=== PATIENT | male | born 1940 | race Caucasian/White ===

== ENCOUNTER 2019-08-01 13:21 | Inpatient (IN) | payer OTHER, MEDICARE ==
--- NOTE | 2019-08-01 14:18 | XR ---
EXAMINATION TYPE: XR chest 2V DATE OF EXAM: 08/01/2019 COMPARISON: NONE HISTORY: Chest pain TECHNIQUE: Frontal and lateral views of the chest are obtained. FINDINGS: There is no focal air space opacity, pleural effusion, or pneumothorax seen. The patient is post median sternotomy and the heart is enlarged, there are overlying cardiac leads. Aorta is dens e. Old left clavicular fracture is now healed. There is thoracic spondylosis. The osseous structures are intact. IMPRESSION: Postop changes, cardiomegaly.
[2019-08-01 14:22] LABS: Basophils # (A) 0.1 k/uL (0-0.2); Basophils % (A) 1 %; Eosinophils # (A) 0.1 k/uL (0-0.7); Eosinophils % (A) 1 %; HCT 42.4 % (39.0-53.0); HGB 14.3 gm/dL (13.0-17.5); Lymphocytes % (A) 10 %; MCH 28.4 pg (25.0-35.0); MCHC 33.6 g/dL (31.0-37.0); MCV 84.4 fL (80.0-100.0); Mean Platelet Volume 6.2; Monocytes # (A) 0.3 k/uL (0-1.0); Monocytes % (A) 3 %; Neutrophils # (A) 8.9 k/uL (1.3-7.7); Neutrophils % (A) 85 %; Platelet Count 272 k/uL (150-450); RBC 5.02 m/uL (4.30-5.90); RDW 13.2 % (11.5-15.5); WBC 10.6 k/uL (3.8-10.6)
[2019-08-01] MEDS ORDERED: KETOROLAC 60 MG/2 ML VIAL IVP STA (14:24)
[2019-08-01 14:38] LABS: ALT 25 U/L (21-72); AST 24 U/L (17-59); African American GFR (CKD) >90 (>60 ml/min/1.73 sqM); Albumin 3.5 g/dL (3.5-5.0); Alkaline Phosphatase 135 U/L (38-126); Anion Gap 6 mmol/L; Blood Urea Nitrogen 14 mg/dL (9-20); Calcium 8.5 mg/dL (8.4-10.2); Carbon Dioxide 29 mmol/L (22-30); Chloride 101 mmol/L (98-107); Glucose 127 mg/dL (74-99); Magnesium 1.8 mg/dL (1.6-2.3); Non-African American GFR(CKD) >90 (>60 ml/min/1.73 sqM); Sodium 136 mmol/L (137-145); Total Bilirubin 0.9 mg/dL (0.2-1.3); Total Protein 6.8 g/dL (6.3-8.2)
[2019-08-01 14:46] LABS: INR 2.4 (<1.2); Partial Thromboplastin Time 35.4 sec (22.0-30.0); Prothrombin Time 23.2 sec (9.0-12.0)
--- NOTE | 2019-08-01 14:48 | ED ---
General Adult HPI - General Chief complaint: Chest Pain Stated complaint: Chest Pain Time Seen by Provider: 08/01/19 13:25 Source: patient, RN notes reviewed, old records reviewed Mode of arrival: ambulatory Limitations: no limitations - History of Present Illness Initial comments: This is a 79-year-old male with past medical history significant for bypass and stent placements of his coronary arteries. Patient also has diabetes hypertension high cholesterol. Patient comes in today because he started having chest pain and states that he also short of breath. She states this is typical of his chest pain that he has in the past when he's had heart attacks. Patient denies any fever chills or cough. Patient denies any lightheadedness or dizziness. Patient denies any abdominal pain patient denies nausea vomiting or diarrhea. Patient denies any increase in the swelling is legs he states he has chronic swelling in his legs. Patient denies any smoking history whatsoever. - Related Data Allergies Allergy/AdvReac Type Severity Reaction Status Date / Time [id number]-[id number]-Dvt Reductase Allergy Unknown Verified 08/01/19 13:24 Inhibitor Review of Systems ROS Statement: Those systems with pertinent positive or pertinent negative responses have been documented in the HPI. ROS Other: All systems not noted in ROS Statement are negative. Past Medical History Past Medical History: Hyperlipidemia, Hypertension History of Any Multi-Drug Resistant Organisms: None Reported Past Surgical History: Coronary Bypass/CABG, Heart Catheterization With Stent Past Psychological History: No Psychological Hx Reported Smoking Status: Never smoker Past Alcohol Use History: None Reported Past Drug Use History: None Reported General Exam - General Exam Comments Initial Comments: GENERAL: Patient is well-developed and well-nourished. Patient is nontoxic and well- hydrated and is in mild distress. ENT: Neck is soft and supple. No significant lymphadenopathy is noted. Oropharynx is clear. Moist mucous membranes. Neck has full range of motion without eliciting any pain. EYES: The sclera were anicteric and conjunctiva were pink and moist. Extraocular movements were intact and pupils were equal round and reactive to light. Eyelids were unremarkable. PULMONARY: Unlabored respirations. Good breath sounds bilaterally. No audible rales rhonchi or wheezing was noted. CARDIOVASCULAR: There is a regular rate and rhythm without any murmurs gallops or rubs. ABDOMEN: Soft and nontender with normal bowel sounds. SKIN: Skin is clear with no lesions or rashes and otherwise unremarkable. NEUROLOGIC: Patient is alert and oriented x3. Cranial nerves II through XII are grossly intact. Motor and sensory are also intact. Normal speech, volume and content. Symmetrical smile. MUSCULOSKELETAL: Normal extremities with adequate strength and full range of motion. No lower extremity swelling or edema. No calf tenderness. LYMPHATICS: No significant lymphadenopathy is noted PSYCHIATRIC: Normal psychiatric evaluation. Limitations: no limitations Course Vital Signs 08/01/19 08/01/19 08/01/19 13:25 13:34 13:40 Temperature 97.7 F Pulse Rate 58 L 57 L Respiratory 18 10 L Rate Blood Pressure 203/90 192/92 O2 Sat by Pulse 97 96 98 Oximetry 08/01/19 08/01/19 08/01/19 13:50 14:00 14:10 Temperature Pulse Rate 57 L 55 L Respiratory 11 L 7 L Rate Blood Pressure 192/92 192/92 202/116 O2 Sat by Pulse 99 98 Oximetry 08/01/19 08/01/19 08/01/19 14:20 14:30 14:40 Temperature Pulse Rate 52 L 55 L Respiratory 13 10 L Rate Blood Pressure 202/116 202/116 O2 Sat by Pulse 99 Oximetry 08/01/19 08/01/19 08/01/19 14:50 15:00 15:10 Temperature Pulse Rate 51 L 54 L 56 L Respiratory 12 16 12 Rate Blood Pressure 184/149 O2 Sat by Pulse 96 97 97 Oximetry 08/01/19 08/01/19 08/01/19 15:20 15:30 15:49 Temperature Pulse Rate 64 72 68 Respiratory 9 L 23 20 Rate Blood Pressure 184/149 184/149 203/110 O2 Sat by Pulse 96 100 Oximetry Medical Decision Making - Medical Decision Making EKG shows sinus bradycardia at 55 bpm MA interval 212 QRS 110 QT interval 44 QTC is 36 per patient's EKG shows no ST segment elevation or depression. Chest x-ray shows no acute abnormality Patient had unstable angina but the patient started coincident no heparin was given. I spoke with Dr. Whiteside she agreed to admit the patient admitted the patient I wrote admitting orders I consult cardiology. - Lab Data Result diagrams: 08/01/19 13:47 08/01/19 13:47 Lab Results 08/01/19 08/01/19 08/01/19 Range/Units 13:47 13:47 13:47 WBC 10.6 (3.8-10.6) k/uL RBC 5.02 (4.30-5.90) m/uL Hgb 14.3 (13.0-17.5) gm/dL Hct 42.4 (39.0-53.0) % MCV 84.4 (80.0-100.0) fL MCH 28.4 (25.0-35.0) pg MCHC 33.6 (31.0-37.0) g/dL RDW 13.2 (11.5-15.5) % Plt Count 272 (150-450) k/uL Neutrophils % 85 % Lymphocytes % 10 % Monocytes % 3 % Eosinophils % 1 % Basophils % 1 % Neutrophils # 8.9 H (1.3-7.7) k/uL Lymphocytes # 1.0 (1.0-4.8) k/uL Monocytes # 0.3 (0-1.0) k/uL Eosinophils # 0.1 (0-0.7) k/uL Basophils # 0.1 (0-0.2) k/uL PT 23.2 H (9.0-12.0) sec INR 2.4 H (<1.2) APTT 35.4 H (22.0-30.0) sec Sodium 136 L (137-145) mmol/L Potassium 4.0 (3.5-5.1) mmol/L Chloride 101 (98-107) mmol/L Carbon Dioxide 29 (22-30) mmol/L Anion Gap 6 mmol/L BUN 14 (9-20) mg/dL Creatinine 0.61 L (0.66-1.25) mg/dL Est GFR (CKD-EPI)AfAm >90 (>60 ml/min/1.73 sqM) Est GFR (CKD-EPI)NonAf >90 (>60 ml/min/1.73 sqM) Glucose 127 H (74-99) mg/dL Calcium 8.5 (8.4-10.2) mg/dL Magnesium 1.8 (1.6-2.3) mg/dL Total Bilirubin 0.9 (0.2-1.3) mg/dL AST 24 (17-59) U/L ALT 25 (21-72) U/L Alkaline Phosphatase 135 H (38-126) U/L Troponin I (0.000-0.034) ng/mL Total Protein 6.8 (6.3-8.2) g/dL Albumin 3.5 (3.5-5.0) g/dL 08/01/19 Range/Units 13:47 WBC (3.8-10.6) k/uL RBC (4.30-5.90) m/uL Hgb (13.0-17.5) gm/dL Hct (39.0-53.0) % MCV (80.0-100.0) fL MCH (25.0-35.0) pg MCHC (31.0-37.0) g/dL RDW (11.5-15.5) % Plt Count (150-450) k/uL Neutrophils % % Lymphocytes % % Monocytes % % Eosinophils % % Basophils % % Neutrophils # (1.3-7.7) k/uL Lymphocytes # (1.0-4.8) k/uL Monocytes # (0-1.0) k/uL Eosinophils # (0-0.7) k/uL Basophils # (0-0.2) k/uL PT (9.0-12.0) sec INR (<1.2) APTT (22.0-30.0) sec Sodium (137-145) mmol/L Potassium (3.5-5.1) mmol/L Chloride (98-107) mmol/L Carbon Dioxide (22-30) mmol/L Anion Gap mmol/L BUN (9-20) mg/dL Creatinine (0.66-1.25) mg/dL Est GFR (CKD-EPI)AfAm (>60 ml/min/1.73 sqM) Est GFR (CKD-EPI)NonAf (>60 ml/min/1.73 sqM) Glucose (74-99) mg/dL Calcium (8.4-10.2) mg/dL Magnesium (1.6-2.3) mg/dL Total Bilirubin (0.2-1.3) mg/dL AST (17-59) U/L ALT (21-72) U/L Alkaline Phosphatase (38-126) U/L Troponin I <0.012 (0.000-0.034) ng/mL Total Protein (6.3-8.2) g/dL Albumin (3.5-5.0) g/dL Disposition Clinical Impression: Chest pain Disposition: ADMITTED IP TO THIS HOSP Referrals: Nonstaff,Physician [Primary Care Provider] - 1-2 days Time of Disposition: 15:55
[2019-08-01] MEDS ORDERED: hydrALAZINE HCL 20 MG/ML 1 ML VIAL IVP STA ×2 (15:51→16:24)
[2019-08-01] MEDS ORDERED: NITROGLYCERIN SL TABS 0.4 MG TAB SUBLINGUAL PRN (15:55)
--- NOTE | 2019-08-01 17:47 | P.HPIM ---
History of Present Illness H&P Date: 08/01/19 Chief Complaint: chest pain The patient is a 79-year-old morbidly obese male with a past medical history of obstructive sleep apnea noncompliant with CPAP therapy, atrial fibrillation currently on Coumadin, essential hypertension, hyperlipidemia, coronary artery disease with stenting 6 history of three-vessel CABG and significant valvular heart disease (type and specifics unknown by patient )presented to the ER via private vehicle with chief complaint of chest pain. The patient reports severe infrasternal/midepigastric stabbing chest discomfort without any radiation with associated shortness of breath, diaphoresis and nausea beginning last night and progressing into today. The patient denies any palpitations, denies headache, slurred speech, focal weakness or facial droop. He reports chronic lower extremity swelling. The patient previously noted a productive cough for the last 2 weeks which seems not to be resolving The patient reports that he usually goes to the [place] and states that he was advised to have valvular repair which she has opted to put off until the summer of next year. He is no ability to ambulate with a with a cane and uses electric scooter and wheelchair In the ER patient had a comprehensive workup EKG showed sinus bradycardia with a rate of 55, troponin was negative at less than 0.012, PT/INR was 23.2 and 2.4. Sodium was 136. Chest x-ray did show cardiomegaly. The patient is noted to have elevated blood pressure as high as the 200s systolically, he was given a dose of hydralazine, sublingual nitroglycerin, hydralazine and started on aspirin and recommended for admission Review of Systems pertinent positives per HPI all other review of systems are otherwise negative Past Medical History Past Medical History: Hyperlipidemia, Hypertension History of Any Multi-Drug Resistant Organisms: None Reported Past Surgical History: Coronary Bypass/CABG, Heart Catheterization With Stent Past Psychological History: No Psychological Hx Reported Smoking Status: Never smoker Past Alcohol Use History: None Reported Past Drug Use History: None Reported Medications and Allergies Allergies Allergy/AdvReac Type Severity Reaction Status Date / Time Xmpehie-[id number]-Tmt Reductase Allergy Unknown Verified 08/01/19 13:24 Inhibitor Physical Exam Vitals: Vital Signs Temp Pulse Resp BP Pulse Ox 08/01/19 16:54 78 18 172/79 100 08/01/19 16:13 75 16 182/84 100 08/01/19 16:04 70 20 180/95 100 08/01/19 15:49 68 20 203/110 100 08/01/19 15:30 72 23 184/149 08/01/19 15:20 64 9 L 184/149 96 08/01/19 15:10 56 L 12 184/149 97 08/01/19 15:00 54 L 16 97 08/01/19 14:50 51 L 12 96 08/01/19 14:40 55 L 10 L 99 08/01/19 14:30 52 L 13 202/116 08/01/19 14:20 202/116 08/01/19 14:10 202/116 08/01/19 14:00 55 L 7 L 192/92 98 08/01/19 13:50 57 L 11 L 192/92 99 08/01/19 13:40 57 L 10 L 192/92 98 08/01/19 13:34 96 08/01/19 13:25 97.7 F 58 L 18 203/90 97 Intake and Output 08/01/19 08/01/19 08/01/19 06:59 14:59 22:59 Other: Weight 148.778 kg Constitutional: No acute distress, conversant, pleasant Eyes: Anicteric sclerae, moist conjunctiva, no lid-lag, PERRLA ENMT: NC/AT,Oropharynx clear, no erythema, exudates Neck:Supple, FROM, no masses, or JVD, No carotid bruits; No thyromegaly Lungs: Clear to auscultation, Clear to percussion, Normal respiratory effort, no accessory muscle use Cardiovascular: Heart regular in rate and rhythm, holosystolic murmur, + 2 lower extremity pitting edema bilaterally Abdominal: Soft Nontender, nom distended, no guarding, no rebound or rigidity, Normoactive bowel sounds No hepatomegaly, No splenomegaly, No palpable mass No abdominal wall hernia noted Skin: Normal temperature, tone, texture, turgor, No induration No subcutaneous nodules, No rash, lesions, No ulcers Extremities:No digital cyanosis No clubbing, Pedal pulses intact and symmetrical Radial pulses intact and gait not assessed, no calf tenderness Psychiatric: Alert and oriented to person, place and time, Appropriate affect Intact judgement Neuro: Muscles Strength 5/5 in all 4 extremities, Sensation to light touch grossly present throughout, Cranial nerves II-XII grossly intact. No focal sensory deficits Results CBC & Chem 7: 08/01/19 13:47 08/01/19 13:47 Labs: Abnormal Lab Results - Last 24 Hours (Table) 08/01/19 08/01/19 08/01/19 Range/Units 13:47 13:47 13:47 Neutrophils # 8.9 H (1.3-7.7) k/uL PT 23.2 H (9.0-12.0) sec INR 2.4 H (<1.2) APTT 35.4 H (22.0-30.0) sec Sodium 136 L (137-145) mmol/L Creatinine 0.61 L (0.66-1.25) mg/dL Glucose 127 H (74-99) mg/dL Alkaline Phosphatase 135 H (38-126) U/L Assessment and Plan Assessment: Assessment Chest pain Coronary artery disease with stenting History of three-vessel CABG Hypertensive urgency History of Paroxysmal A. fib on Coumadin therapy Valvular heart disease Hyperlipidemia Plan: The patient is placed in observation anticipated less than 2 midnight stay after presented with chest pain in the patient with a history of known coronary dise ase with stenting and history of three-vessel CABG that presented with hypertensive urgency. The patient is placed on telemetry with routine chest pain orders with sublingual nitroglycerin aspirin ordered, will also give him a dose of morphine. The patient reports previous echocardiogram done within the last 3 months try to obtain [facility], I will check a TSH. Initial workup with troponin has been negative will continue to trend sequentially and consult cardiology for further recommendations. Patient to continue nose home medications after his list is updated in the EMR. We'll continue to monitor his blood pressure closely and continue to monitor his clinical course CODE STATUS: Full code Discussed plan of care with: Patient and significant other Anticipated discharge: 1-[address]: Home Prophylaxis SCDs/warfarin and Protonix
[2019-08-01] MEDS ORDERED: ONDANSETRON 4 MG/2 ML VIAL IVP STA (17:55)
[2019-08-01] MEDS ORDERED: NITROGLYCERIN OINT 1 INCH/GM PACKET TOPICAL SCH (18:00)
[2019-08-01] MEDS ORDERED: ARTIFICIAL TEARS-HYPROMELLOSE DROPS 15 ML BTL BOTH EYES PRN (18:11)
[2019-08-01] MEDS ORDERED: ALBUTEROL NEBULIZED 2.5 MG/3 ML INHALATION PRN (18:11)
[2019-08-01] MEDS ORDERED: WARFARIN 5 MG TAB PO SCH (18:30)
[2019-08-01] MEDS ORDERED: MORPHINE SULFATE 2 MG/ML SYRINGE IVP PRN (18:45)
[2019-08-01] MEDS ORDERED: NITROGLYCERIN-D5W PMX 50 MG in DEXTROSE/WATER 1 250ML.BAG IV SCH ×2 (18:45→19:00)
[2019-08-01] MEDS: HYDROCHLOROTHIAZIDE 25 MG TAB PO SCH (20:04)
[2019-08-01] MEDS: PANTOPRAZOLE 40 MG TABLET PO SCH (20:04)
[2019-08-01] MEDS: TAMSULOSIN 0.4 MG CAP.ER.24H PO SCH (20:04)
[2019-08-01] MEDS: LOSARTAN 25 MG TAB PO SCH (20:04)
[2019-08-01] MEDS: ATORVASTATIN 40 MG TAB PO SCH (20:04)
[2019-08-01] MEDS ORDERED: MAG HYDROX/AL HYDROX/SIMETH 30 ML CUP PO PRN (20:18)
[2019-08-01] MEDS ORDERED: ISOSORBIDE MONONITRATE ER 60 MG TAB.ER.24H PO SCH (21:00)
[2019-08-02] MEDS ORDERED: cloNIDine HCL 0.2 MG TAB PO PRN (03:52)
[2019-08-02 06:40] LABS: Cholesterol 104 mg/dL (<200); HDL Cholesterol 30 mg/dL (40-60); LDL Cholesterol,Calculated 61 mg/dL (0-99); Triglycerides 64 mg/dL (<150)
[2019-08-02 06:42] LABS: INR 2.6 (<1.2); Prothrombin Time 24.9 sec (9.0-12.0)
[2019-08-02] MEDS ORDERED: ASPIRIN 325 MG TAB PO SCH (09:00)
[2019-08-02] MEDS ORDERED: PHYTONADIONE ORAL 5 MG/5 ML ORAL.SYRG PO STA (09:48)
--- NOTE | 2019-08-02 09:55 | P.CRDCN ---
History of Present Illness Consult date: 08/02/19 Requesting physician: Tamera Whiteside Consult reason: non-Q-wave CA Chief complaint: Chest pain History of present illness: This is a 79-year-old gentleman with history of coronary artery disease and prior stent placements, he also underwent coronary artery bypass grafting surgery which she states was performed approximately 5 years ago at the [facility] in [place]. Patient also has history of hypertension, hyperlipidemia, paroxysmal atrial fibrillation. He presented to the hospital on this occasion with symptoms of midsternal chest discomfort which she states felt like gas pain. He almost felt like he had the chills associated with that. After hospital arrival he states he became quite diaphoretic. Chest x-ray on presentation here did not reveal any acute changes. EKG shows sinus bradycardia on admission here. Subsequent EKG shows normal sinus rhythm with nonspecific ST-T wave changes. On arrival the patient's blood pressure was 203/90 with a heart rate in the 50s, 97% on room air. Blood pressure this morning 130/60 with a heart rate in the 70s, 94% on room air. Patient was a low-grade temperature of 99.1. White blood cell count 10.6, hemoglobin 14.3, platelet count 272. INR 2.4 on arrival, 2.6 this morning. Sodium 136, potassium 4.0, BUN 14, creatinine 0.6, magnesium 1.8. Troponins 0.012, 0.017, 092. TSH 2.3. At the time of my examination this morning the patient is currently chest pain-free. Past Medical History Past Medical History: Hyperlipidemia, Hypertension History of Any Multi-Drug Resistant Organisms: None Reported Past Surgical History: Coronary Bypass/CABG, Heart Catheterization With Stent Additional Past Surgical History / Comment(s): CABG (at least 5 years ago) Past Anesthesia/Blood Transfusion Reactions: No Reported Reaction Date of Last Stent Placement:: unk Past Psychological History: No Psychological Hx Reported Smoking Status: Never smoker Past Alcohol Use History: None Reported Past Drug Use History: None Reported Medications and Allergies Home Medications Medication Instructions Recorded Confirmed Type Albuterol Inhaler [Ventolin Hfa 2 puff INHALATION RT-QID PRN 08/01/19 08/01/19 History Inhaler] Atorvastatin [Lipitor] 40 mg PO HS 08/01/19 08/01/19 History Dextran 70/Hypromellose [Genteal 2 drop BOTH EYES QID PRN 08/01/19 08/01/19 History Tears 0.1%-0.3% Drop] Hydrochlorothiazide 25 mg PO HS 08/01/19 08/01/19 History Isosorbide Mononitrate ER [Imdur] 60 mg PO HS 08/01/19 08/01/19 History Losartan Potassium [Cozaar] 25 mg PO HS 08/01/19 08/01/19 History Pantoprazole [Protonix] 40 mg PO HS 08/01/19 08/01/19 History Tamsulosin HCl [Flomax] 0.4 mg PO HS 08/01/19 08/01/19 History Warfarin [Coumadin] 5 mg PO HS 08/01/19 08/01/19 History Allergies Allergy/AdvReac Type Severity Reaction Status Date / Time Fkzcmjz-Lwf-Jnu Reductase Allergy Unknown Verified 08/01/19 17:53 Inhibitor Physical Exam Vitals: Vital Signs Temp Pulse Pulse Resp BP BP Pulse Ox 08/02/19 09:01 98.5 F 71 18 131/59 94 L 08/02/19 04:00 99.1 F 74 18 118/57 92 L 08/02/19 00:00 80 18 121/56 93 L 08/01/19 22:30 99.5 F 90 18 145/65 98 08/01/19 20:00 99.1 F 97 18 184/71 95 08/01/19 18:24 98.1 F 97 20 213/80 96 08/01/19 17:49 98.7 F 78 18 151/57 98 08/01/19 16:54 78 18 172/79 100 08/01/19 16:13 75 16 182/84 100 08/01/19 16:04 70 20 180/95 100 08/01/19 15:49 68 20 203/110 100 08/01/19 15:30 72 23 184/149 08/01/19 15:20 64 9 L 184/149 96 08/01/19 15:10 56 L 12 184/149 97 08/01/19 15:00 54 L 16 97 08/01/19 14:50 51 L 12 96 08/01/19 14:40 55 L 10 L 99 08/01/19 14:30 52 L 13 202/116 08/01/19 14:20 202/116 08/01/19 14:10 202/116 08/01/19 14:00 55 L 7 L 192/92 98 08/01/19 13:50 57 L 11 L 192/92 99 08/01/19 13:40 57 L 10 L 192/92 98 08/01/19 13:34 96 08/01/19 13:25 97.7 F 58 L 18 203/90 97 Intake and Output 08/01/19 08/02/19 08/02/19 22:59 06:59 14:59 Other: Voiding Method Incontinent Incontinent # Voids 1 Weight 145.8 kg PHYSICAL EXAMINATION: GENERAL: 79-year-old gentleman in no acute distress at the time of my examination HEENT: Head is atraumatic, normocephalic. Pupils equal, round. Sclera anicteric. Conjunctiva are clear. Mucous membranes of the mouth are moist. Neck is supple. There is no elevated jugular venous pressure. No carotid bruit is heard. HEART EXAMINATION: Heart S1-S2 a systolic murmur. CHEST EXAMINATION: Lungs are clear to auscultation and precussion. No chest wall tenderness is noted on palpation or with deep breathing. ABDOMEN: Soft, obese, nontender. Bowel sounds are heard. No organomegaly noted. EXTREMITIES: 2+ peripheral pulses with no evidence of peripheral edema and no calf tenderness noted. NEUROLOGIC patient is awake, alert and oriented 3 . . Results 08/01/19 13:47 08/01/19 13:47 Cardiac Enzymes 08/01/19 08/01/19 08/01/19 Range/Units 13:47 13:47 19:04 AST 24 (17-59) U/L Troponin I <0.012 0.017 (0.000-0.034) ng/mL 08/02/19 Range/Units 02:08 AST (17-59) U/L Troponin I 0.092 H* (0.000-0.034) ng/mL Coagulation 08/01/19 08/02/19 Range/Units 13:47 05:50 PT 23.2 H 24.9 H (9.0-12.0) sec APTT 35.4 H (22.0-30.0) sec Lipids 08/02/19 Range/Units 05:50 Triglycerides 64 (<150) mg/dL Cholesterol 104 (<200) mg/dL HDL Cholesterol 30 L (40-60) mg/dL CBC 08/01/19 Range/Units 13:47 WBC 10.6 (3.8-10.6) k/uL RBC 5.02 (4.30-5.90) m/uL Hgb 14.3 (13.0-17.5) gm/dL Hct 42.4 (39.0-53.0) % Plt Count 272 (150-450) k/uL Comprehensive Metabolic Panel 08/01/19 Range/Units 13:47 Sodium 136 L (137-145) mmol/L Potassium 4.0 (3.5-5.1) mmol/L Chloride 101 (98-107) mmol/L Carbon Dioxide 29 (22-30) mmol/L BUN 14 (9-20) mg/dL Creatinine 0.61 L (0.66-1.25) mg/dL Glucose 127 H (74-99) mg/dL Calcium 8.5 (8.4-10.2) mg/dL AST 24 (17-59) U/L ALT 25 (21-72) U/L Alkaline Phosphatase 135 H (38-126) U/L Total Protein 6.8 (6.3-8.2) g/dL Albumin 3.5 (3.5-5.0) g/dL Current Medications Generic Name Dose Route Start Last Admin Trade Name Freq PRN Reason Stop Dose Admin Hydrocodone Bitart/Acetaminophen 1 each 08/01/19 18:43 [place] 5-325 PO Q6HR PRN Moderate Pain Al Hydroxide/Mg Hydroxide 30 ml 08/01/19 20:18 08/01/19 21:03 Maalox PO 30 ml Q4HR PRN Administration GI Upset Albuterol Sulfate 2.5 mg 08/01/19 18:11 Ventolin Nebulized INHALATION RT-QID PRN Shortness Of Breath Artificial Tears 2 drops 08/01/19 18:11 Artificial Tear Drops BOTH EYES QID PRN Dry Eye(s) Aspirin 325 mg 08/02/19 09:00 08/02/19 08:52 Aspirin PO 325 mg DAILY [facility] Administration Atorvastatin Calcium 40 mg 08/01/19 21:00 08/01/19 20:04 Lipitor PO 40 mg HS [facility] Administration Clonidine 0.2 mg 08/02/19 03:52 Catapres PO TID PRN Blood Pressure - High Hydrochlorothiazide 25 mg 08/01/19 21:00 08/01/19 20:04 Hydrodiuril PO 25 mg HS [facility] Administration Nitroglycerin/Dextrose 50 mg/ 250 mls @ 1.5 mls/hr 08/01/19 19:00 IV Solution IV .Q24H [facility] Protocol 5 MCG/MIN Losartan Potassium 25 mg 08/01/19 21:00 08/01/19 20:04 Cozaar PO 25 mg HS [facility] Administration Morphine Sulfate 2 mg 08/01/19 18:45 Morphine Sulfate (Inj) IVP Q4H PRN Severe Pain/Discomfort Nitroglycerin 0.4 mg 08/01/19 15:55 Nitrostat SUBLINGUAL Q5M PRN Chest Pain Pantoprazole Sodium 40 mg 08/01/19 21:00 08/01/19 20:04 Protonix PO 40 mg HS [facility] Administration Tamsulosin HCl 0.4 mg 08/01/19 21:00 08/01/19 20:04 Flomax PO 0.4 mg HS [facility] Administration Warfarin Sodium 5 mg 08/01/19 18:30 08/01/19 18:33 Coumadin PO 5 mg DAILY@1800 [facility] Administration Intake and Output 08/01/19 08/02/19 08/02/19 22:59 06:59 14:59 Other: Voiding Method Incontinent Incontinent # Voids 1 Weight 145.8 kg 08/01/19 13:47 08/01/19 13:47 EKG Interpretations (text) EKG shows a normal sinus rhythm with nonspecific ST-T wave changes Assessment and Plan Plan: Assessment and plan #1 midsternal chest pressure and heaviness with associated diaphoresis, troponins 0.012, 0.017, 0.092. EKG shows normal sinus rhythm with nonspecific ST-T wave changes. Clinical picture suggesting acute coronary syndrome. #2 known history of coronary artery disease with prior stenting and coronary artery bypass grafting surgery #3 hyperlipidemia #4 hypertension, accelerated on admission #5 paroxysmal atrial fibrillation on Coumadin for anticoagulation, INR 2.6 Plan Will obtain an echocardiogram with Doppler study. Decrease aspirin 81 mg daily, give the patient a dose of vitamin K today, continue Lipitor, losartan, his continue the when necessary Catapres and hydralazine and start the patient on a beta rosalind. Hold Coumadin. Patient has been advised to undergo cardiac catheterization, the risks and the benefits were explained to the patient in detail. He wishes to speak with a friend prior to proceeding with a heart catheter. This will tentatively be booked today with Dr. Porter ,further rec ommendations to follow DNP note has been reviewed, I agree with a documented findings and plan of care. Patient was seen and examined.
[2019-08-02] MEDS ORDERED: ALPRAZolam 0.5 MG TAB PO PRN (09:56)
[2019-08-02] MEDS ORDERED: SODIUM CHLORIDE 0.9% 1,000 ML in EMPTY BAG 1 BAG IV ONE (09:56)
[2019-08-02] MEDS ORDERED: ALPRAZolam 0.25 MG TAB PO PRN (09:56)
[2019-08-02] MEDS ORDERED: ASPIRIN 325 MG TAB PO STA (09:56)
[2019-08-02] MEDS ORDERED: NITROGLYCERIN SL TABS 0.4 MG TAB SUBLINGUAL PRN (09:56)
[2019-08-02] MEDS ORDERED: ATORVASTATIN 80 MG TAB PO STA (09:56)
[2019-08-02] MEDS: CARVEDILOL 3.125 MG TAB PO SCH ×2 (11:53→21:40)
--- NOTE | 2019-08-02 12:07 | P.PN ---
Subjective Progress Note Date: 08/02/19 Patient seen and examined at bedside currently denying chest pain , reports that he had a lot of belching and burping last evening and thinks it might have been acid reflux . Patient informed that his cardiac markers as troponins trended up 0.012, 0.017, 0.092. Patient seen by cardiology earlier and planning to take the patient to the cardiac catheterization. Objective - Vital Signs Vital signs: Vital Signs Temp 98.5 F 08/02/19 09:01 Pulse 71 08/02/19 09:01 Resp 18 08/02/19 09:01 BP 131/59 08/02/19 09:01 Pulse Ox 94 L 08/02/19 09:01 Intake & Output 08/01/19 08/02/19 08/02/19 18:59 06:59 18:59 Weight 148.778 kg 145.8 kg Other: Voiding Method Incontinent Incontinent # Voids 1 - Exam Constitutional: No acute distress, conversant, pleasant Eyes: Anicteric sclerae, moist conjunctiva, no lid-lag, PERRLA ENMT: NC/AT,Oropharynx clear, no erythema, exudates Neck:Supple, FROM, no masses, or JVD, No carotid bruits; No thyromegaly Lungs: Clear to auscultation, Clear to percussion, Normal respiratory effort, no accessory muscle use Cardiovascular: Heart regular in rate and rhythm, holosystolic murmur, + 2 lower extremity pitting edema bilaterally Abdominal: Soft Nontender, nom distended, no guarding, no rebound or rigidity, Normoactive bowel sounds No hepatomegaly, No splenomegaly, No palpable mass No abdominal wall hernia noted Skin: Normal temperature, tone, texture, turgor, No induration No subcutaneous nodules, No rash, lesions, No ulcers Extremities:No digital cyanosis No clubbing, Pedal pulses intact and symmetrical Radial pulses intact and gait not assessed, no calf tenderness Psychiatric: Alert and oriented to person, place and time, Appropriate affect Intact judgement Neuro: Muscles Strength 5/5 in all 4 extremities, Sensation to light touch grossly present throughout, Cranial nerves II-XII grossly intact. No focal sensory deficits - Labs CBC & Chem 7: 08/01/19 13:47 08/01/19 13:47 Labs: Abnormal Lab Results - Last 24 Hours (Table) 08/01/19 08/01/19 08/01/19 Range/Units 13:47 13:47 13:47 Neutrophils # 8.9 H (1.3-7.7) k/uL PT 23.2 H (9.0-12.0) sec INR 2.4 H (<1.2) APTT 35.4 H (22.0-30.0) sec Sodium 136 L (137-145) mmol/L Creatinine 0.61 L (0.66-1.25) mg/dL Glucose 127 H (74-99) mg/dL Alkaline Phosphatase 135 H (38-126) U/L Troponin I (0.000-0.034) ng/mL HDL Cholesterol (40-60) mg/dL 08/02/19 08/02/19 08/02/19 Range/Units 02:08 05:50 05:50 Neutrophils # (1.3-7.7) k/uL PT 24.9 H (9.0-12.0) sec INR 2.6 H (<1.2) APTT (22.0-30.0) sec Sodium (137-145) mmol/L Creatinine (0.66-1.25) mg/dL Glucose (74-99) mg/dL Alkaline Phosphatase (38-126) U/L Troponin I 0.092 H* (0.000-0.034) ng/mL HDL Cholesterol 30 L (40-60) mg/dL Assessment and Plan Assessment: Non-STEMI * Troponins 0.012, 0.017, 092 EKG showing sinus mechanism with nonspecific ST-T wave changes * Patient on heparin drip as his Patient INR therapeutic at 2.5 * Etiology planning to take patient to cardiac catheterization, given dose of vitamin K * Continue therapy with aspirin, Lipitor and losartan * Echocardiogram ordered and is pending Hypertensive emergency * Now resolved, patient was not given any doses of his nitroglycerin drip as his blood pressure normalized last evening * Continue current management Coronary artery disease with stenting * Continue regimen as above History of vessel CABG Hyperlipidemia * LDL at goal continue statin regimen Paroxysmal A. fib * INR previously therapeutic now being reversed to proceed with cardiac cath * Continue beta rosalind Valvular heart disease * Echocardiogram pending Disposition * Appreciate cardiology recommendations patient will be taken to phlebotomy lab assistant later today * Continue medical management for now * Awaiting records from the [place]
[2019-08-02 16:32] LABS: Glucose,Whole Blood 107 mg/dL (75-99)
[2019-08-02] MEDS ORDERED: LIDOCAINE 1% INJ 10MG/ML (20 ML MDV) ONE (17:48)
[2019-08-02] MEDS ORDERED: IV FLUID CONTINUATION 1,000 ML IV ONE (18:00)
[2019-08-02] MEDS ORDERED: MIDAZOLAM 2 MG/2 ML VIAL IV ONE ×3 (18:10→18:51)
[2019-08-02] MEDS ORDERED: LIDOCAINE 1% INJ 10MG/ML (20 ML MDV) SQ ONE (18:22)
[2019-08-02] MEDS ORDERED: IOPAMIDOL-370 125ML BTL INJ ONE (18:43)
[2019-08-02] MEDS ORDERED: IOPAMIDOL-370 100ML BTL INJ ONE (18:55)
[2019-08-02] MEDS ORDERED: hydrALAZINE HCL 20 MG/ML 1 ML VIAL ONE (18:58)
[2019-08-02] MEDS ORDERED: hydrALAZINE HCL 20 MG/ML 1 ML VIAL IV ONE (18:59)
[2019-08-02] MEDS ORDERED: RX INFO: IV CONTRAST WAS GIVEN 1 EACH MISC MISCELLANE PRN (19:00)
[2019-08-02] MEDS ORDERED: SODIUM CHLORIDE 0.9% 1,000 ML IV SCH (19:00)
[2019-08-02] MEDS: LOSARTAN 25 MG TAB PO SCH (21:39)
[2019-08-02] MEDS: TAMSULOSIN 0.4 MG CAP.ER.24H PO SCH (21:40)
[2019-08-02] MEDS: ATORVASTATIN 40 MG TAB PO SCH (21:40)
[2019-08-02] MEDS: PANTOPRAZOLE 40 MG TABLET PO SCH (21:40)
[2019-08-02] MEDS: HYDROCHLOROTHIAZIDE 25 MG TAB PO SCH (21:40)
--- NOTE | 2019-08-02 22:15 | CC ---
CARDIAC CATHETERIZATION REPORT DATE OF SERVICE: 08/02/2019 PERFORMING PHYSICIAN: Basilio Acosta MD PROCEDURES PERFORMED: 1. Selective left and right coronary angiogram. 2. Angiogram of left internal mammary artery to left anterior descending coronary artery. 3. Angiogram of saphenous vein graft to left circumflex. INDICATION: This is a 79-year-old gentleman with history of coronary artery disease and prior coronary revascularization bypass and stenting with unknown details. His coronary procedures were performed at [facility]. He presented to the hospital with chest discomfort and ruled in for acute ovo-YN-[id number] myocardial infarction. Because of that, a heart catheterization was advised. APPROACH: Right common femoral artery. COMPLICATIONS: None. LEVEL OF SEDATION: Moderate, with sedation length of 39 minutes. PROCEDURE DESCRIPTION: After obtaining informed consent, the patient was brought to the cardiac wharf laborer. The right common femoral artery was cannulated using micropuncture technique. The micropuncture wire passed easily. Then I placed a 6-[place] sheath. Selective left and right coronary angiogram was performed using JL4 and JR4 catheters. OLIVAREZ to LAD angiogram was performed using the JR4 catheter. The SVG to left circumflex was performed using JR4 catheter as well. The procedure was completed without any complication. SELECTIVE CORONARY ANGIOGRAM: 1. The left main appeared to have mild disease only. It bifurcates into LCX and LAD. 2. The LCX has a tight lesion in the proximal portion. Competitive flow was seen from the graft to OM. 3. The LAD. The ostial LAD had a lesion that appeared to be in the range of 50%. The proximal LAD appeared to have mild disease only. The mid LAD has competitive flow from the OLIVAREZ as well. 4. The RCA has a lesion in the midportion that appeared to be in the range of 70%. ANGIOGRAM OF CORONARY BYPASSES: 1. The OLIVAREZ to LAD is patent. 2. The SVG to OM is patent. CONCLUSION: 1. Severe triple-vessel coronary artery disease. 2. Patent OLIVAREZ to LAD. 3. Patent SVG to LCX. 4. The graft to RCA was not opacified. POST-PROCEDURE MANAGEMENT: Obtain his previous medical records. If the RCA graft is occluded, I would pursue PCI of the RCA. MMODL / IJN: [id number] /
[2019-08-02] MEDS: HYDROcodone/APAP 5-325MG 1 EACH TAB PO PRN (23:04)
[2019-08-03 06:30] LABS: INR 1.5 (<1.2)
[2019-08-03] MEDS: CARVEDILOL 3.125 MG TAB PO SCH ×2 (06:48→17:07)
[2019-08-03] MEDS: ASPIRIN 81 MG PO SCH (09:48)
--- NOTE | 2019-08-03 10:53 | P.PN ---
Subjective Progress Note Date: 08/03/19 Principal diagnosis: None STEMI This is a pleasant 79-year-old gentleman with history of coronary artery disease and prior revascularization as well as aortic stenosis was admitted to the hospital with chest discomfort and ruled in for acute non-ST elevation myocardial infarction. Yesterday he underwent heart catheterization which revealed severe triple-vessel CAD with patent OLIVAREZ to LAD and patent graft to the left circumflex. The RCA has a tight lesion and I could not find the graft to the right. He was seen this morning. He continues to have chest discomfort/pressure. He states mild. We are still waiting for the record to come from the [facility] at [facility]. Meanwhile I am going to continue the current medical regimen. I will obtain an echocardiogram to assess aortic stenosis. Also I am going to add oral nitrates to her current medical regimen. Objective - Vital Signs Vital signs: Vital Signs Temp 99.4 F 08/03/19 08:00 Pulse 91 08/03/19 08:00 Resp 16 08/03/19 08:00 BP 114/55 08/03/19 08:00 Pulse Ox 94 L 08/03/19 08:00 Intake & Output 08/02/19 08/03/19 08/03/19 18:59 06:59 18:59 Intake Total 75 222 Output Total 250 Balance 75 -28 Weight 146.2 kg Intake: IV 75 Oral 222 Output: Urine 250 Other: Voiding Method Incontinent Urinal Urinal # Voids 2 - Constitutional General appearance: Present: no acute distress - Respiratory Respiratory: bilateral: CTA - Cardiovascular Rhythm: regular Heart sounds: normal: S1, S2 Abnormal Heart Sounds: Present: systolic murmur - Labs CBC & Chem 7: 08/01/19 13:47 08/01/19 13:47 Labs: Abnormal Lab Results - Last 24 Hours (Table) 08/02/19 08/03/19 Range/Units 16:31 06:05 PT 15.0 H (9.0-12.0) sec INR 1.5 H (<1.2) POC Glucose (mg/dL) 107 H (75-99) mg/dL Assessment and Plan Assessment: Assessment #1 acute non-ST elevation SD #2 aortic stenosis of unknown severity #3 severe CAD and prior revascularization #4 chest discomfort Plan #1 continue the current medical regimen #2 add oral nitrates to the current medical regimen #3 obtain an echocardiogram was Doppler #4 follow-up with the patient
--- NOTE | 2019-08-03 11:14 | XR ---
EXAMINATION TYPE: XR chest 1V portable DATE OF EXAM: 08/03/2019 COMPARISON: 08/01/2019 HISTORY: Cough and shortness of breath TECHNIQUE: Single frontal view of the chest is obtained. FINDINGS: Cardiomediastinal silhouette is enlarged. Post-CABG changes are seen in the chest. Promine nce of the ascending thoracic aorta is noted. Mild pulmonary vascular congestion centrally. No new fo antoinette consolidation or pleural effusion. Degenerative changes of the right shoulder and thoracic spine. IMPRESSION: 1. Prominence of the ascending thoracic aorta. Aneurysm is possible. 2. Minimal central pulmonary vascular congestion and cardiomegaly. Consider early decompensated conge stive heart failure. No sizable pleural effusion at this time on x-ray.
[2019-08-03] MEDS: BENZONATATE 100 MG CAP PO PRN ×2 (11:45→21:35)
[2019-08-03] MEDS ORDERED: SODIUM CHLORIDE 0.9% 1,000 ML in EMPTY BAG 1 BAG IV ONE (11:45)
[2019-08-03] MEDS ORDERED: ALPRAZolam 0.5 MG TAB PO PRN (11:45)
[2019-08-03] MEDS ORDERED: ALPRAZolam 0.25 MG TAB PO PRN (11:45)
[2019-08-03] MEDS ORDERED: NITROGLYCERIN SL TABS 0.4 MG TAB SUBLINGUAL PRN (11:45)
[2019-08-03] MEDS ORDERED: ATORVASTATIN 40 MG TAB PO STA (11:45)
[2019-08-03] MEDS ORDERED: ASPIRIN 325 MG TAB PO STA (11:45)
--- NOTE | 2019-08-03 12:13 | P.PN ---
Subjective Progress Note Date: 08/03/19 Principal diagnosis: Chest pain, possible CHF exacerbation Patient was seen and examined. No acute events overnight. Patient reports complete resolution of his chest pain since admission. He complains of worsening shortness of breath this morning and cough productive of frothy sputum. He denies any nausea or vomiting, fever or chills. Patient reports that things are good at home even though he lives by himself. He is able to take care of his ADLs, IADLs. Has Meals on Wheels. Objective - Vital Signs Vital signs: Vital Signs Temp 98.6 F 08/03/19 11:34 Pulse 78 08/03/19 11:34 Resp 20 08/03/19 11:34 BP 144/67 08/03/19 11:34 Pulse Ox 93 L 08/03/19 11:34 Intake & Output 08/02/19 08/03/19 08/03/19 18:59 06:59 18:59 Intake Total 75 222 Output Total 250 Balance 75 -28 Weight 146.2 kg Intake: IV 75 Oral 222 Output: Urine 250 Other: Voiding Method Incontinent Urinal Urinal # Voids 2 - Exam General: [non toxic], [no distress], [appears at stated age] Derm: [warm], [dry] Head: [atraumatic], [normocephalic], [symmetric] Eyes: [EOMI], [no lid lag], [anicteric sclera] Mouth: [no lip lesion], [mucus membranes moist] Cardiovascular: [S1S2 reg], [systolic murmur], [positive DP pulse bilateral], Lungs: [Faint crackles bilaterally], [no rhonchi, no rales] , [no accessory muscle use] Abdominal: [soft], [ nontender to palpation], [no guarding], [no appreciable or ganomegaly] Ext: [no gross muscle atrophy], [1+ lower extremity pitting edema], [no contractures] Neuro: [no focal neuro deficits] Psych: [Alert], [oriented], [appropriate affect] - Labs CBC & Chem 7: 08/01/19 13:47 08/01/19 13:47 Labs: Abnormal Lab Results - Last 24 Hours (Table) 08/02/19 08/03/19 Range/Units 16:31 06:05 PT 15.0 H (9.0-12.0) sec INR 1.5 H (<1.2) POC Glucose (mg/dL) 107 H (75-99) mg/dL Assessment and Plan Assessment: Assessment and plan Shortness of breath possible exacerbation of heart failure versus valvular disease Non-ST elevation GA with history of CAD post CABG and stenting Hypertension Dyslipidemia Paroxysmal atrial fibrillation Chest x-ray this morning showing minimal pulmonary vascular congestion and cardiomegaly. Systolic murmur heard on physical exam, likely aortic stenosis. Plans: Start Lasix 40 mg IV twice a day. Follow-up echocardiogram. Strict intake and outtake. Daily weights. Follow Cardiology consultation. Troponin less than 0.012, 0.017, 0.092, EKG showing sinus bradycardia and first-degree AV block. Cardiac cath performed yesterday, shows severe triple- vessel CAD, 70% occlusion of the RCA, patent OLIVAREZ to LAD, patent SVG to LCx. Plans: Continue aspirin and Lipitor. Continue beta rosalind. Telemetry monitoring. [facility] records obtained, discussed with cardiology GAS ANALYST Mess, patient will require PCI and possible stent planned for tomorrow. BP 144/67. Plans: Continue Coreg. Continue hydrochlorothiazide. Continue losartan and Imdur. Monitor vitals, adjust medications as necessary. Plans: Resume statin. Paroxysmal. Not seen on EKG. Plans: Continue beta rosalind. Resume Coumadin after PCI. [Patient admitted for chest pain, found to have elevated troponins, plans for PCI and possible stent placement tomorrow. Echocardiogram pending. Started on Lasix for venous congestion.]
[2019-08-03 12:25] LABS: African American GFR (CKD) >90 (>60 ml/min/1.73 sqM); Anion Gap 4 mmol/L; Blood Urea Nitrogen 27 mg/dL (9-20); Calcium 7.8 mg/dL (8.4-10.2); Carbon Dioxide 28 mmol/L (22-30); Chloride 102 mmol/L (98-107); Glucose 115 mg/dL (74-99); Non-African American GFR(CKD) 85 (>60 ml/min/1.73 sqM); Potassium 3.7 mmol/L (3.5-5.1); Sodium 134 mmol/L (137-145)
[2019-08-03] MEDS: FUROSEMIDE 10 MG/ML 4 ML VIAL IV SCH ×2 (12:50→21:35)
[2019-08-03] MEDS: LOSARTAN 25 MG TAB PO SCH (21:35)
[2019-08-03] MEDS: PANTOPRAZOLE 40 MG TABLET PO SCH (21:35)
[2019-08-03] MEDS: HYDROCHLOROTHIAZIDE 25 MG TAB PO SCH (21:36)
[2019-08-03] MEDS: ATORVASTATIN 40 MG TAB PO SCH (21:36)
[2019-08-03] MEDS: TAMSULOSIN 0.4 MG CAP.ER.24H PO SCH (21:36)
[2019-08-04] MEDS ORDERED: SODIUM CHLORIDE 0.9% 1,000 ML in EMPTY BAG 1 BAG IV ONE (06:00)
[2019-08-04 06:44] LABS: Prothrombin Time 11.1 sec (9.0-12.0)
[2019-08-04] MEDS: CARVEDILOL 3.125 MG TAB PO SCH ×2 (06:46→17:50)
[2019-08-04] MEDS: BENZONATATE 100 MG CAP PO PRN (06:47)
--- NOTE | 2019-08-04 07:32 | ECHOF ---
Referral Reason:NSTEMI MEASUREMENTS -------- HEIGHT: 180.3 cm WEIGHT: 146.1 kg BP: IVSd: 1.4 cm (0.6 - 1.1) LVIDd: 4.7 cm (3.9 - 5.3) LVPWd: 1.6 cm (0.6 - 1.1) IVSs: 2.2 cm LVIDs: 2.0 cm LVPWs: 2.3 cm LAESV Index (A-L): 20.75 ml/m Ao Diam: 3.4 cm (2.0 - 3.7) AV Cusp: 1.7 cm (1.5 - 2.6) LA Diam: 3.4 cm (2.7 - 3.8) MV EXCURSION: 24.989 mm (> 18.000) MV EF SLOPE: 106 mm/s (70 - 150) EPSS: 0.4 cm MV E Go: 0.97 m/s MV DecT: 345 ms MV A Go: 1.01 m/s MV E/A Ratio: 0.96 AV maxP.82 mmHg AV meanP.11 mmHg RAP: 5.00 mmHg RVSP: 23.84 mmHg FINDINGS -------- Sinus rhythm. This was a technically difficult study with suboptimal views. Previous CABG The left ventricular size is normal. There is moderate concentric left ventricular hypertrophy. O verall left ventricular systolic function is normal with, an EF between 55 - 60 %. There is paradox ical/dysynergic septal motion consistent with post-operative status. The right ventricle is normal in size. The left atrial size is normal. Normal LA size by volume 22+/-6 ml/m2. The right atrial size is normal. Lumason used Aortic valve is trileaflet and is mildly thickened. There is moderate aortic stenosis present. Pe ak/mean gradient across the Aortic Valve is 45.82mmHg / 27.11mmHg. The mitral valve is normal. Mild mitral regurgitation is present. The tricuspid valve appears structurally normal. Mild tricuspid regurgitation present. Right vent ricular systolic pressure is normal at < 35 mmHg. There is no pulmonic regurgitation present. The aortic root size is normal. There is no pericardial effusion. CONCLUSIONS -------- 1. Sinus rhythm. 2. This was a technically difficult study with suboptimal views. 3. Previous CABG 4. The left ventricular size is normal. 5. There is moderate concentric left ventricular hypertrophy. 6. Overall left ventricular systolic function is normal with, an EF between 55 - 60 %. 7. There is paradoxical/dysynergic septal motion consistent with post-operative status. 8. The right ventricle is normal in size. 9. The left atrial size is normal. 10. Normal LA size by volume 22+/-6 ml/m2. 11. The right atrial size is normal. 12. Lumason used 13. Aortic valve is trileaflet and is mildly thickened. 14. There is moderate aortic stenosis present. 15. Peak/mean gradient across the Aortic Valve is 45.82mmHg / 27.11mmHg. 16. The mitral valve is normal. 17. Mild mitral regurgitation is present. 18. The tricuspid valve appears structurally normal. 19. Mild tricuspid regurgitation present. 20. Right ventricular systolic pressure is normal at < 35 mmHg. 21. There is no pulmonic regurgitation present. 22. The aortic root size is normal. 23. There is no pericardial effusion. PRINTING GRAY CLOTH TENDER: Jennie Ramos RDCS
[2019-08-04] MEDS ORDERED: ASPIRIN 325 MG TAB PO STA (09:17)
[2019-08-04] MEDS: ASPIRIN 81 MG PO SCH (09:19)
[2019-08-04] MEDS: ISOSORBIDE MONONITRATE ER 30 MG TAB.ER.24H PO SCH (09:22)
[2019-08-04] MEDS: FUROSEMIDE 10 MG/ML 4 ML VIAL IV SCH (09:23)
[2019-08-04] MEDS ORDERED: ACETAMINOPHEN TAB 325 MG TAB PO PRN (09:46)
--- NOTE | 2019-08-04 09:53 | P.PN ---
Subjective Progress Note Date: 08/04/19 Principal diagnosis: Chest pain, cough and fatigue Patient was seen and examined. No acute events overnight. Patient reports cough productive of sputum that he is unable to describe has been ongoing over the past couple months. Also states that he feels fatigued today. He denies any chest pain or epigastric pain. No nausea or vomiting. Had a low-grade fever this morning. Denies any myalgias. Objective - Vital Signs Vital signs: Vital Signs Temp 98.6 F 08/04/19 03:45 Pulse 97 08/04/19 03:45 Resp 20 08/04/19 03:45 BP 124/74 08/04/19 03:45 Pulse Ox 99 08/04/19 03:45 Intake & Output 08/03/19 08/04/19 08/04/19 18:59 06:59 18:59 Intake Total 430 0 Output Total 2024 1899 Balance -1595 -1900 0 Weight 149 kg Intake: Oral 430 0 Output: Urine 2024 1899 Other: Voiding Method Urinal Urinal # Voids 4 - Exam General: [non toxic], [no distress], [appears at stated age] Derm: [warm], [dry] Head: [atraumatic], [normocephalic], [symmetric] Eyes: [EOMI], [no lid lag], [anicteric sclera] Mouth: [no lip lesion], [mucus membranes moist] Cardiovascular: [S1S2 reg], [systolic murmur], [positive DP pulse bilateral], Lungs: [Decreased breath sounds bilaterally], [no rhonchi, no rales] , [no accessory muscle use] Abdominal: [soft], [ nontender to palpation], [no guarding], [no appreciable organomegaly] Ext: [no gross muscle atrophy], [no edema], [no contractures] Neuro: [no focal neuro deficits] Psych: [Alert], [oriented], [appropriate affect] - Labs CBC & Chem 7: 08/01/19 13:47 08/03/19 06:05 Labs: Abnormal Lab Results - Last 24 Hours (Table) 08/03/19 Range/Units 06:05 Sodium 134 L (137-145) mmol/L BUN 27 H (9-20) mg/dL Glucose 115 H (74-99) mg/dL Calcium 7.8 L (8.4-10.2) mg/dL Assessment and Plan Assessment: Assessment and plan Low-grade fever with cough and shortness of breath, likely viral bronchitis Non-ST elevation [place] with history of CAD post CABG and stenting Elevated BUN Hypertension Dyslipidemia Paroxysmal atrial fibrillation Patient with low-grade fever this morning along with cough productive of undefined sputum, though ongoing for months. Also has fatigue. Echocardiogram shows EF 55-60% with moderate aortic stenosis. Plans: Transition Lasix to oral as echocardiogram looks okay. Repeat chest x-ray. Follow flu swab. Tylenol for fever. Start Mucinex. Troponin less than 0.012, 0.017, 0.092, EKG showing sinus bradycardia and first- degree AV block. Cardiac cath performed yesterday, shows severe triple-vessel CAD, 70% occlusion of the RCA, patent OLIVAREZ to LAD, patent SVG to LCx. Plans: Continue aspirin and Lipitor. Continue beta rosalind. Telemetry monitoring. [facility] records obtained, discussed with cardiology INTERACTIVE PRODUCER Mess, patient will require PCI and possible stent planned for today. BUN 27. Likely prerenal due to Lasix use. Plans: Avoid nephrotoxins. Encourage hydration by mouth. Repeat BMP tomorrow morning. BP 124/74. Plans: Continue Coreg. Continue hydrochlorothiazide. Continue losartan and Imdur. Monitor vitals, adjust medications as necessary. Plans: Resume statin. Paroxysmal. Not seen on EKG. Plans: Continue beta rosalind. Resume Coumadin after PCI. [Patient admitted for chest pain, found to have elevated troponins, plans for PCI and possible stent placement today. Low-grade fever this morning, flu swab ordered along with repeat chest x-ray. Patient is pending clinical improvement. Likely DC in 1-2 days.]
--- NOTE | 2019-08-04 09:59 | XR ---
EXAMINATION TYPE: XR chest 2V DATE OF EXAM: 08/04/2019 COMPARISON: 08/03/2019 HISTORY: Shortness of breath TECHNIQUE: Frontal and lateral views of the chest are obtained. FINDINGS: Scattered senescent parenchymal changes noted. Hyperinflation compatible with COPD. No evidence for infiltrate. No evidence for atelectasis. Heart size is stable. Mediastinal structures are stable and grossly unremarkable. No evidence for hilar prominence. Degenerative changes dorsal spine. IMPRESSION: 1. No evidence for acute pulmonary disease.
[2019-08-04] MEDS ORDERED: IV FLUID CONTINUATION 950 ML IV ONE (12:25)
[2019-08-04] MEDS ORDERED: MIDAZOLAM 2 MG/2 ML VIAL IV ONE (12:48)
[2019-08-04] MEDS ORDERED: LIDOCAINE 1% INJ 10MG/ML (20 ML MDV) SQ ONE (12:49)
[2019-08-04] MEDS: VERAPAMIL SYRINGE (5 MG/10 ML) INTRAARTER ONE ×2 (12:50→13:24)
[2019-08-04] MEDS ORDERED: IOPAMIDOL-370 50ML BTL INJ ONE (12:57)
[2019-08-04] MEDS ORDERED: IOPAMIDOL-370 100ML BTL INJ ONE (12:57)
[2019-08-04] MEDS ORDERED: HEPARIN SODIUM 1,000 UN/ML (10ML VL) IV ONE ×2 (12:59→13:16)
[2019-08-04] MEDS ORDERED: NITROGLYCERIN 1000MCG/10ML SYRINGE INTRACORON ONE (13:23)
[2019-08-04] MEDS ORDERED: niCARdipine Syringe (1,000 mcg/10 mL) INTRACORON ONE (13:23)
[2019-08-04] MEDS ORDERED: CLOPIDOGREL 75 MG TAB PO ONE (13:27)
[2019-08-04] MEDS ORDERED: ATROPINE SULFATE 0.1 MG/ML 10ML SYRINGE IV PRN (13:28)
[2019-08-04] MEDS ORDERED: IOPAMIDOL-370 125ML BTL INJ ONE (13:28)
--- NOTE | 2019-08-04 13:57 | PTCA ---
PERCUTANEOUSTRANS CORORONARY ANGIOGRAPHY DATE OF SERVICE: 08/01/2019 PERFORMING PHYSICIAN: Basilio Acosta MD Successful stenting of the SVG to RCA using 2.5 x 18 mm Xience RAFY with an excellent angiographic result and reduction of stenosis from 80% to 0%. INDICATION: This is a 79-year-old gentleman with history of coronary artery disease and prior revascularization, who presented to the hospital with chest discomfort and ruled in for acute non STEMI. He underwent heart catheterization 2 days ago and was found to have severe triple-vessel CAD with patent OLIVAREZ to LAD, patent SVG to the circumflex, and severe disease involving the graft to RCA. APPROACH: Right radial artery. COMPLICATION: None. LEVEL OF SEDATION: Moderate with sedation length of 40 minutes. PROCEDURE DESCRIPTION: After obtaining an informed consent, the patient was brought to the cardiac laboratory animal care veterinarian. The right radial artery was cannulated using micropuncture technique and a micropuncture wire passed easily, then I placed a 6-[place] sheath in the right radial artery. Anticoagulation was initiated using heparin, where the patient was given 10,000 units of heparin IV with continuous ECT monitoring throughout the procedure. I did initially aortic root angiogram which revealed the takeoff of the graft to the right coronary artery. After that, I did engage the graft using JR4 guide with side hole. I did wire it using a whisper wire. I did balloon angioplasty using 2.0 x 12 mm balloon before I deployed 2.5 x 18 mm Xience RAFY where the stent was positioned under fluoroscopy guidance and deployed under 14 atmospheres for 20 seconds with the following angiogram showing excellent angiographic results. The procedure was completed without any complication. POSTPROCEDURE MANAGEMENT: 1. Dual anti-platelet therapy. 2. Risk factors modifications. 3. Follow up with the patient. MMODL / IJN: [id number] /
[2019-08-04 14:04] VITALS: BMI 44.5
[2019-08-04] MEDS ORDERED: DILTIAZEM DRIP BOLUS FROM BAG 1 MG SOLN IV ONE (14:39)
[2019-08-04] MEDS ORDERED: HEPARIN SODIUM,PORCINE 5,000 UNIT/ML 1 ML VIAL IV PRN (14:39)
[2019-08-04] MEDS ORDERED: HEPARIN SODIUM,PORCINE 5,000 UNIT/ML 1 ML VIAL IV ONE (14:39)
[2019-08-04] MEDS ORDERED: HEPARIN SOD,PORK IN 0.45% NACL 25,000 UNIT in 0.45% NACL 1 250ML.BAG IV SCH (14:45)
[2019-08-04] MEDS ORDERED: DILTIAZEM 125 MG in SODIUM CHLORIDE 0.9% 100 ML IV SCH (15:00)
[2019-08-04] MEDS: SODIUM CHLORIDE 0.9% 1,000 ML IV SCH (15:06)
[2019-08-04 15:27] LABS: Basophils # (A) 0.1 k/uL (0-0.2); Basophils % (A) 1 %; Eosinophils # (A) 0.2 k/uL (0-0.7); Eosinophils % (A) 2 %; HCT 37.6 % (39.0-53.0); HGB 12.4 gm/dL (13.0-17.5); Lymphocytes # (A) 1.7 k/uL (1.0-4.8); Lymphocytes % (A) 17 %; MCH 28.7 pg (25.0-35.0); MCHC 32.9 g/dL (31.0-37.0); MCV 87.3 fL (80.0-100.0); Mean Platelet Volume 5.9; Monocytes # (A) 0.6 k/uL (0-1.0); Monocytes % (A) 6 %; Neutrophils % (A) 72 %; Platelet Count 216 k/uL (150-450); RBC 4.31 m/uL (4.30-5.90); RDW 13.4 % (11.5-15.5); WBC 9.8 k/uL (3.8-10.6)
[2019-08-04 15:50] LABS: INR 1.1 (<1.2); Prothrombin Time 11.9 sec (9.0-12.0)
[2019-08-04 16:06] LABS: Partial Thromboplastin Time >200.0 sec (22.0-30.0)
[2019-08-04] MEDS: PANTOPRAZOLE 40 MG TABLET PO SCH (22:03)
[2019-08-04] MEDS: HYDROCHLOROTHIAZIDE 25 MG TAB PO SCH (22:03)
[2019-08-04] MEDS: guaiFENesin 600 MG TABLET.ER PO SCH (22:03)
[2019-08-04] MEDS: LOSARTAN 25 MG TAB PO SCH (22:03)
[2019-08-04] MEDS: ATORVASTATIN 40 MG TAB PO SCH (22:03)
[2019-08-04] MEDS: TAMSULOSIN 0.4 MG CAP.ER.24H PO SCH (22:04)
[2019-08-05] MEDS: BENZONATATE 100 MG CAP PO PRN (04:09)
[2019-08-05] MEDS: SODIUM CHLORIDE 0.9% 1,000 ML IV SCH (06:28)
[2019-08-05] MEDS: CARVEDILOL 3.125 MG TAB PO SCH (06:28)
[2019-08-05 06:32] LABS: Basophils % (A) 0 %; Eosinophils # (A) 0.2 k/uL (0-0.7); Eosinophils % (A) 2 %; HCT 36.9 % (39.0-53.0); HGB 12.1 gm/dL (13.0-17.5); Lymphocytes # (A) 1.4 k/uL (1.0-4.8); Lymphocytes % (A) 14 %; MCH 28.7 pg (25.0-35.0); MCHC 32.8 g/dL (31.0-37.0); MCV 87.4 fL (80.0-100.0); Mean Platelet Volume 5.8; Monocytes # (A) 0.7 k/uL (0-1.0); Monocytes % (A) 7 %; Neutrophils # (A) 7.2 k/uL (1.3-7.7); Neutrophils % (A) 74 %; Platelet Count 239 k/uL (150-450); RBC 4.22 m/uL (4.30-5.90); RDW 13.1 % (11.5-15.5); WBC 9.7 k/uL (3.8-10.6)
[2019-08-05 06:39] LABS: African American GFR (CKD) >90 (>60 ml/min/1.73 sqM); Anion Gap 6 mmol/L; Blood Urea Nitrogen 22 mg/dL (9-20); Carbon Dioxide 32 mmol/L (22-30); Chloride 97 mmol/L (98-107); Glucose 118 mg/dL (74-99); Non-African American GFR(CKD) >90 (>60 ml/min/1.73 sqM); Potassium 3.5 mmol/L (3.5-5.1); Sodium 135 mmol/L (137-145)
[2019-08-05 08:05] LABS: Basophils # (A) 0.3 k/uL (0-0.2); Basophils % (A) 3 %; Eosinophils # (A) 0.3 k/uL (0-0.7); Eosinophils % (A) 3 %; HGB 12.6 gm/dL (13.0-17.5); Lymphocytes # (A) 1.2 k/uL (1.0-4.8); Lymphocytes % (A) 12 %; MCH 28.1 pg (25.0-35.0); MCHC 32.4 g/dL (31.0-37.0); MCV 86.6 fL (80.0-100.0); Mean Platelet Volume 6.3; Monocytes # (A) 0.6 k/uL (0-1.0); Monocytes % (A) 6 %; Neutrophils # (A) 7.4 k/uL (1.3-7.7); Neutrophils % (A) 74 %; Platelet Count 247 k/uL (150-450); RDW 13.3 % (11.5-15.5); WBC 10.1 k/uL (3.8-10.6)
[2019-08-05 08:11] VITALS: TEMP 97.7
[2019-08-05] MEDS: ASPIRIN 81 MG PO SCH (08:12)
[2019-08-05] MEDS: ISOSORBIDE MONONITRATE ER 30 MG TAB.ER.24H PO SCH (08:12)
[2019-08-05] MEDS: guaiFENesin 600 MG TABLET.ER PO SCH (08:13)
[2019-08-05 08:16] LABS: African American GFR (CKD) >90 (>60 ml/min/1.73 sqM); Anion Gap 6 mmol/L; Blood Urea Nitrogen 21 mg/dL (9-20); Calcium 8.2 mg/dL (8.4-10.2); Carbon Dioxide 31 mmol/L (22-30); Chloride 98 mmol/L (98-107); Glucose 147 mg/dL (74-99); Magnesium 1.8 mg/dL (1.6-2.3); Non-African American GFR(CKD) 89 (>60 ml/min/1.73 sqM); Potassium 3.7 mmol/L (3.5-5.1); Sodium 135 mmol/L (137-145)
[2019-08-05] MEDS ORDERED: FUROSEMIDE 40 MG TAB PO SCH (09:00)
[2019-08-05] MEDS ORDERED: METOPROLOL TARTRATE 50 MG TAB PO SCH (10:00)
[2019-08-05 10:31] LABS: Prothrombin Time 10.9 sec (9.0-12.0)
--- NOTE | 2019-08-05 10:53 | P.PN ---
Subjective Progress Note Date: 08/05/19 Principal diagnosis: None STEMI This is a pleasant 79-year-old gentleman with history of coronary artery disease and prior revascularization as well as aortic stenosis was admitted to the hospital with chest discomfort and ruled in for acute non-ST elevation myocardial infarction. Yesterday he underwent heart catheterization which revealed severe triple-vessel CAD with patent OLIVAREZ to LAD and patent graft to the left circumflex. Yesterday he underwent an aortic root angiogram which revealed the takeoff of the graft to the right coronary artery. I was able to engage the graft and the angiogram revealed tight lesion in the proximal portion. He underwent successful stenting of the SVG to the right with a good angiographic results. He was seen this morning. He is asymptomatic from the cardiovascular standpoint overview. he is in atrial fibrillation with a relatively controlled heart rate. He is on small dose of Cardizem IV. At this point I'm going to decrease the dose of Cardizem IV, DC Coreg and start the patient on metoprolol, and also DC the heparin and start him on oral anticoagulation with Coumadin which she was receiving as an outpatient. Beside that he is on dual antiplatelet therapy. Objective - Vital Signs Vital signs: Vital Signs Temp 97.7 F 08/05/19 08:00 Pulse 80 08/05/19 08:00 Resp 14 08/05/19 08:00 BP 115/59 08/05/19 08:00 Pulse Ox 94 L 08/05/19 08:00 Intake & Output 08/04/19 08/05/19 08/05/19 18:59 06:59 18:59 Intake Total 641.835 514.833 360 Output Total 600 325 Balance 41.835 189.833 360 Weight 149 kg 150 kg Intake: IV 150 Intake, IV Titration 70.833 Amount Heparin Sod,Pork in 0.45% 70.833 NaCl 25,000 unit In 0.45 % NaCl 1 250ml.bag @ 6. 712 UNITS/KG/HR 10.001 mls/hr IV .Q24H [facility] Rx#: [id number] Oral 480 444 360 Output: Urine 600 325 Other: Voiding Method Urinal # Voids 2 1 # Bowel Movements 1 - Constitutional General appearance: Present: no acute distress - Respiratory Respiratory: bilateral: diminished - Cardiovascular Rhythm: irregularly irregular Heart sounds: normal: S1, S2 - Labs CBC & Chem 7: 08/05/19 07:53 08/05/19 07:53 Labs: Abnormal Lab Results - Last 24 Hours (Table) 08/04/19 08/04/19 08/04/19 Range/Units 14:59 14:59 20:40 RBC (4.30-5.90) m/uL Hgb 12.4 L (13.0-17.5) gm/dL Hct 37.6 L (39.0-53.0) % Basophils # (0-0.2) k/uL APTT >200.0 H* 34.0 H (22.0-30.0) sec Sodium (137-145) mmol/L Chloride (98-107) mmol/L Carbon Dioxide (22-30) mmol/L BUN (9-20) mg/dL Glucose (74-99) mg/dL Calcium (8.4-10.2) mg/dL 08/05/19 08/05/19 08/05/19 Range/Units 06:11 06:11 06:11 RBC 4.22 L (4.30-5.90) m/uL Hgb 12.1 L (13.0-17.5) gm/dL Hct 36.9 L (39.0-53.0) % Basophils # (0-0.2) k/uL APTT 31.3 H (22.0-30.0) sec Sodium 135 L (137-145) mmol/L Chloride 97 L (98-107) mmol/L Carbon Dioxide 32 H (22-30) mmol/L BUN 22 H (9-20) mg/dL Glucose 118 H (74-99) mg/dL Calcium 8.0 L (8.4-10.2) mg/dL 08/05/19 08/05/19 Range/Units 07:53 07:53 RBC (4.30-5.90) m/uL Hgb 12.6 L (13.0-17.5) gm/dL Hct (39.0-53.0) % Basophils # 0.3 H (0-0.2) k/uL APTT (22.0-30.0) sec Sodium 135 L (137-145) mmol/L Chloride (98-107) mmol/L Carbon Dioxide 31 H (22-30) mmol/L BUN 21 H (9-20) mg/dL Glucose 147 H (74-99) mg/dL Calcium 8.2 L (8.4-10.2) mg/dL Assessment and Plan Assessment: Assessment #1 acute non-ST elevation [place] #2 status post a stenting of the SVG to RCA #3 moderate aortic stenosis #4 long-standing persistent atrial fibrillation Plan #1 wean the patient from Cardizem IV #2 DC Coreg and start him on metoprolol #3 DC heparin and start him back on Coumadin #4 possible discharge in the next 24 hours
[2019-08-05 11:13] VITALS: BP 145/63; PULSE 68; RESP 16
--- NOTE | 2019-08-05 11:40 | P.PN ---
Subjective Progress Note Date: 08/05/19 Principal diagnosis: Chest pain, cough and fatigue Patient was seen and examined. No acute events overnight. Patient reports slight improvement in his cough since yesterday. He denies any chest pain or shortness of breath. He denies any nausea or vomiting. No fever or chills. Evaluated by PT, recommends rehab the patient was like to go home. He states that he has a lady friend that he would like to live with and she will take great care of him. Objective - Vital Signs Vital signs: Vital Signs Temp 97.7 F 08/05/19 11:11 Pulse 68 08/05/19 11:11 Resp 16 08/05/19 11:11 BP 145/63 08/05/19 11:11 Pulse Ox 95 08/05/19 11:11 Intake & Output 08/04/19 08/05/19 08/05/19 18:59 06:59 18:59 Intake Total 641.835 514.833 360 Output Total 600 325 Balance 41.835 189.833 360 Weight 149 kg 150 kg Intake: IV 150 Intake, IV Titration . 70.833 Amount Heparin Sod,Pork in 0.45% 70.833 NaCl 25,000 unit In 0.45 % NaCl 1 250ml.bag @ 6. 712 UNITS/KG/HR 10.001 mls/hr IV .Q24H [facility] Rx#: [id number] Oral 480 444 360 Output: Urine 600 325 Other: Voiding Method Urinal # Voids 2 1 # Bowel Movements 1 - Exam General: [non toxic], [no distress], [appears at stated age] Derm: [warm], [dry] Head: [atraumatic], [normocephalic], [symmetric] Eyes: [EOMI], [no lid lag], [anicteric sclera] Mouth: [no lip lesion], [mucus membranes moist] Cardiovascular: [S1S2 reg], [systolic murmur, irregularly irregular], [positive DP pulse bilateral], Lungs: [Decreased breath sounds bilaterally], [no rhonchi, no rales] , [no acce ssory muscle use] Abdominal: [soft], [ nontender to palpation], [no guarding], [no appreciable organomegaly] Ext: [no gross muscle atrophy], [no edema], [no contractures] Neuro: [no focal neuro deficits] Psych: [Alert], [oriented], [appropriate affect] - Labs CBC & Chem 7: 08/05/19 07:53 08/05/19 07:53 Labs: Abnormal Lab Results - Last 24 Hours (Table) 08/04/19 08/04/19 08/04/19 Range/Units 14:59 14:59 20:40 RBC (4.30-5.90) m/uL Hgb 12.4 L (13.0-17.5) gm/dL Hct 37.6 L (39.0-53.0) % Basophils # (0-0.2) k/uL APTT >200.0 H* 34.0 H (22.0-30.0) sec Sodium (137-145) mmol/L Chloride (98-107) mmol/L Carbon Dioxide (22-30) mmol/L BUN (9-20) mg/dL Glucose (74-99) mg/dL Calcium (8.4-10.2) mg/dL 08/05/19 08/05/19 08/05/19 Range/Units 06:11 06:11 06:11 RBC 4.22 L (4.30-5.90) m/uL Hgb 12.1 L (13.0-17.5) gm/dL Hct 36.9 L (39.0-53.0) % Basophils # (0-0.2) k/uL APTT 31.3 H (22.0-30.0) sec Sodium 135 L (137-145) mmol/L Chloride 97 L (98-107) mmol/L Carbon Dioxide 32 H (22-30) mmol/L BUN 22 H (9-20) mg/dL Glucose 118 H (74-99) mg/dL Calcium 8.0 L (8.4-10.2) mg/dL 08/05/19 08/05/19 Range/Units 07:53 07:53 RBC (4.30-5.90) m/uL Hgb 12.6 L (13.0-17.5) gm/dL Hct (39.0-53.0) % Basophils # 0.3 H (0-0.2) k/uL APTT (22.0-30.0) sec Sodium 135 L (137-145) mmol/L Chloride (98-107) mmol/L Carbon Dioxide 31 H (22-30) mmol/L BUN 21 H (9-20) mg/dL Glucose 147 H (74-99) mg/dL Calcium 8.2 L (8.4-10.2) mg/dL Assessment and Plan Assessment: Assessment and plan Low-grade fever with cough and shortness of breath, likely viral bronchitis Non-ST elevation [place] with history of CAD post CABG and stenting Elevated BUN Hypertension Dyslipidemia Atrial fibrillation Patient with low-grade fever this morning along with cough productive of unde fined sputum, though ongoing for months. Also has fatigue. Echocardiogram shows EF 55-60% with moderate aortic stenosis. Chest x-ray negative. Flu swab negative. Plans: Transition Lasix to oral as echocardiogram looks okay. Tylenol for fever. Start Mucinex. Troponin less than 0.012, 0.017, 0.092, EKG showing sinus bradycardia and first- degree AV block. Cardiac cath performed yesterday, shows severe triple-vessel CAD, 70% occlusion of the RCA, patent OLIVAREZ to LAD, patent SVG to LCx. RAFY placement in the RCA yesterday. Plans: Continue aspirin and Lipitor. Started on Plavix. Continue beta rosalind. Telemetry monitoring. Patient is cleared from cardiology perspective. BUN 21. Likely prerenal due to Lasix use. Plans: Avoid nephrotoxins. Encourage hydration by mouth. BP 145/63. Plans: Continue metoprolol. Continue hydrochlorothiazide. Continue losartan and Imdur. Monitor vitals, adjust medications as necessary. Plans: Resume statin. Patient started on Cardizem drip overnight now discontinued. Patient started on metoprolol by cardiology. Plans: Continue metoprolol in the outpatient setting. Resume Coumadin. [Patient admitted for chest pain, found to have elevated troponins, stent placed in the RCA. Low-grade fever with cough, chest x-ray clear along with flu swab negative likely viral bronchitis. Patient developed some A. fib, started on Cardizem drip now discontinued for metoprolol by mouth. Patient was cleared for discharge by cardiology. PT evaluated the patient and recommended rehab the patient refusing. Likely go home will be taking care of by a lady friend. Advised to take medications including aspirin and Plavix and adequate follow-up with cardiology. Patient verbalized understanding of the plan.]
[2019-08-05] MEDS ORDERED: WARFARIN 2.5 MG TAB PO STA (12:31)
[2019-08-05] MEDS ORDERED: WARFARIN 5 MG TAB PO STA (12:36)
[2019-08-05] MEDS: HYDROcodone/APAP 5-325MG 1 EACH TAB PO PRN (13:28)
[2019-08-05] MEDS ORDERED: CLOPIDOGREL 75 MG TAB PO SCH (13:45)
[2019-08-05] MEDS ORDERED: WARFARIN 2.5 MG TAB PO ONE (18:00)
--- NOTE | 2019-08-09 16:52 | P.DS ---
Providers Date of admission: 08/02/19 11:38 Expected date of discharge: 08/05/19 Attending physician: Tamera Whiteside DO Consults: 08/01/19 15:55 Consult Physician Urgent Consulting Provider: Lisa Freeman Consult Reason/Comments: Unstable angina Do you want consulting provider notified?: Yes 08/04/19 13:28 Consult Physician Routine Consulting Provider: Lisa Freeman Consult Reason/Comments: Post Interventional patient Do you want consulting provider notified?: Already Contacted Primary care physician: Physician Nonstaff Hospital Course: The patient is a 79-year-old morbidly obese male with a past medical history of obstructive sleep apnea noncompliant with CPAP therapy, atrial fibrillation currently on Coumadin, essential hypertension, hyperlipidemia, coronary artery disease with stenting 6 history of three-vessel CABG and significant valvular heart disease (type and specifics unknown by patient )presented to the ER via private vehicle with chief complaint of chest pain. In the ER patient had a comprehensive workup EKG showed sinus bradycardia with a rate of 55, troponin was negative at less than 0.012, PT/INR was 23.2 and 2.4. Sodium was 136. Chest x-ray did show cardiomegaly. The patient is noted to have elevated blood pressure as high as the 200s systolically, he was given a dose of hydralazine, sublingual nitroglycerin, hydralazine and started on aspirin and recommended for admission. With regard to his chest pain, plan was to rule out acute coronary syndrome. Troponin was less than 0.012, 0.017, 0.092 with EKG showing sinus bradycardia and first-degree AV block. Cardiac catheterization was performed by cardiology which showed triple-vessel disease, 70% occlusion of the RCA, patent OLIVAREZ to LAD, patent SVG to the left circumflex. Drug-eluting stent was placed in the RCA. Patient was continued on aspirin and Lipitor along with Plavix. He was continued on his home dose of beta rosalind. Echocardiogram showed EF 55-60% with moderate aortic stenosis. Patient developed atrial fibrillation after catheterization for which he was started on a Cardizem drip which was discontinued prior to discharge. His Coreg was switched to metoprolol for discharge. Patient was noted to have low-grade fever with cough and shortness of breath during his hospitalization which was thought to be due to viral bronchitis. Chest x-ray was negative. Flu swab was negative. He was given Tylenol for fever and started on Mucinex. Otherwise, his home medications were resumed. Assessment and plan Low-grade fever with cough and shortness of breath, likely viral bronchitis Non-ST elevation [place] with history of CAD post CABG and stenting Elevated BUN Hypertension Dyslipidemia Atrial fibrillation This complex discharge took greater than 35 minutes to complete. Pertinent Studies: Chest x-ray, echocardiogram, cardiac catheterization Patient Condition at Discharge: Stable Plan - Discharge Summary Discharge Rx Participant: No New Discharge Prescriptions: New Aspirin 81 mg PO DAILY #30 chew Isosorbide Mononitrate ER [Imdur] 30 mg PO DAILY #30 tab.er.24h Furosemide [Lasix] 40 mg PO DAILY #30 tab Metoprolol Tartrate [Lopressor] 50 mg PO BID #60 tab Clopidogrel [Plavix] 75 mg PO DAILY #30 tab Continue Tamsulosin HCl [Flomax] 0.4 mg PO HS Dextran 70/Hypromellose [Genteal Tears 0.1%-0.3% Drop] 2 drop BOTH EYES QID PRN PRN Reason: Dry Eye(S) Atorvastatin [Lipitor] 40 mg PO HS Albuterol Inhaler [Ventolin Hfa Inhaler] 2 puff INHALATION RT-QID PRN PRN Reason: Shortness Of Breath Warfarin [Coumadin] 5 mg PO HS Losartan Potassium [Cozaar] 25 mg PO HS Hydrochlorothiazide 25 mg PO HS Pantoprazole [Protonix] 40 mg PO HS Discontinued Isosorbide Mononitrate ER [Imdur] 60 mg PO HS Discharge Medication List Albuterol Inhaler [Ventolin Hfa Inhaler] 2 puff INHALATION RT-QID PRN 08/01/19 [History] Atorvastatin [Lipitor] 40 mg PO HS 08/01/19 [History] Dextran 70/Hypromellose [Genteal Tears 0.1%-0.3% Drop] 2 drop BOTH EYES QID PRN 08/01/19 [History] Hydrochlorothiazide 25 mg PO HS 08/01/19 [History] Losartan Potassium [Cozaar] 25 mg PO HS 08/01/19 [History] Pantoprazole [Protonix] 40 mg PO HS 08/01/19 [History] Tamsulosin HCl [Flomax] 0.4 mg PO HS 08/01/19 [History] Warfarin [Coumadin] 5 mg PO HS 08/01/19 [History] Aspirin 81 mg PO DAILY #30 chew 08/05/19 [Rx] Clopidogrel [Plavix] 75 mg PO DAILY #30 tab 08/05/19 [Rx] Furosemide [Lasix] 40 mg PO DAILY #30 tab 08/05/19 [Rx] Isosorbide Mononitrate ER [Imdur] 30 mg PO DAILY #30 tab.er.24h 08/05/19 [Rx] Metoprolol Tartrate [Lopressor] 50 mg PO BID #60 tab 08/05/19 [Rx] Follow up Appointment(s)/Referral(s): Basilio Acosta MD [STAFF PHYSICIAN] - 1 Week Nonstaff,Physician [Primary Care Provider] - 08/15/19 9:00 am ([facility] [phone] To Set Up transportation - [facility] [id number]) Ambulatory/Diagnostic Orders: Prothrombin Time INR [LAB.AMB] Time Frame: 3 Days, Location: None Selected Patient Instructions/Handouts: Heart Healthy Diet (DC), After Radial Heart Catheterization (GEN) Activity/Diet/Wound Care/Special Instructions: CARDIAC CATH 1. Support your puncture site by applying firm, steady pressure whenever you cough, laugh, sneeze or bear down to have a bowel movement (2-day restriction f or groin site puncture). 2. Watch for any excessive bruising, active bleeding, a firm knot forming under your skin, extreme tenderness and signs of infection (redness, swelling, fever). 3. Shower daily, do not soak puncture in a tub bath, jacuzzi, pool, haines etc. for 1 week. This is to prevent risk of infection. 4. Drink plenty of fluids the day of and day after your procedure to flush contrast dye out of your kidneys. 5. Take all medications as directed. Never stop any new medication without your physicians OK. 6. No driving for 2 days after procedure. 7. 10- pound weight lifting restriction for 1 week. 8. Low sodium/low fat diet. 9. Activity limited until follow up appointment with your medical biller/coder. In case of any problems, please call [facility] [place] @ [phone]. Follow-up with PCP within 2 days of discharge. Follow-up with cardiology within 1 week of discharge. Take all medications as advised. Discharge Disposition: HOME SELF-CARE
== END 2019-08-05 18:17 | disposition home or self-care (01) | DRG 247 ==
LOC: EC 13:21 → 3SCARD 15:55 → OBSVTOIN 08-02 11:38
PROVIDERS: ADMIT Internal Medicine; ATTEND Internal Medicine
PROC: B2111ZZ Fluoroscopy of Multiple Coronary Arteries using Low Osmolar Contrast (ICD-10-PCS; 2019-08-02)
PROC: B2181ZZ Fluoroscopy of Left Internal Mammary Bypass Graft using Low Osmolar Contrast (ICD-10-PCS; 2019-08-02)
PROC: B2121ZZ Fluoroscopy of Single Coronary Artery Bypass Graft using Low Osmolar Contrast (ICD-10-PCS; 2019-08-02)
PROC: 027034Z Dilation of Coronary Artery, One Artery with Drug-eluting Intraluminal Device, Percutaneous Approach (ICD-10-PCS; principal; 2019-08-04 14:50)
DX: I21.4 Non-ST elevation (NSTEMI) myocardial infarction (principal); Z68.41 Body mass index [BMI] 40.0-44.9, adult; I16.1 Hypertensive emergency; I48.11 Longstanding persistent atrial fibrillation; E66.01 Morbid (severe) obesity due to excess calories; E11.9 Type 2 diabetes mellitus without complications; J20.8 Acute bronchitis due to other specified organisms; I35.0 Nonrheumatic aortic (valve) stenosis; I25.710 Atherosclerosis of autologous vein coronary artery bypass graft(s) with unstable angina pectoris; I25.110 Atherosclerotic heart disease of native coronary artery with unstable angina pectoris; R00.1 Bradycardia, unspecified; I44.0 Atrioventricular block, first degree; R94.4 Abnormal results of kidney function studies; T50.1X5A Adverse effect of loop [high-ceiling] diuretics, initial encounter; I10 Essential (primary) hypertension; E78.5 Hyperlipidemia, unspecified; G47.33 Obstructive sleep apnea (adult) (pediatric); R32 Unspecified urinary incontinence; Z79.01 Long term (current) use of anticoagulants; Z79.899 Other long term (current) drug therapy; Z91.19 Patient's noncompliance with other medical treatment and regimen; Z71.3 Dietary counseling and surveillance; Z95.1 Presence of aortocoronary bypass graft; Z95.5 Presence of coronary angioplasty implant and graft; Z88.8 Allergy status to other drugs, medicaments and biological substances
CPT/HCPCS: 36415; 71045; 71046; 80048; 80053; 80061; 83735; 84443; 84484; 85025; 85347; 85610; 85730; 87502; 93005; 93306; 93455; 94760; 96374; 96375; 96376; 99285; C1874